=== PATIENT | male | born 1965 | race Hispanic/Latino ===

== ENCOUNTER 2018-07-10 14:27 | Observation (INO) | payer OTHER ==
[~2018-07-10] VITALS: Ht 180.3 cm; Wt 87.5 kg
[2018-07-10] VITALS (14 sets, daily range): BP systolic 102–144; BP diastolic 46–81
[2018-07-10 14:37] LABS: BASOPHILS % (AUTO) 0.7 % (0.0-5.0); EOSINOPHILS % (AUTO) 0.2 % (0.0-8.0); HEMATOCRIT 41.3 % (42-54); LYMPHOCYTES % (AUTO) 19.4 % (21.0-51.0); MEAN CORPUSCULAR HEMOGLOBIN 30.1 pg (27.0-33.0); MEAN CORPUSCULAR HGB CONC 33.9 g/dL (32.0-36.0); MEAN CORPUSCULAR VOLUME 88.8 fL (79-99); MONOCYTES % (AUTO) 6.2 % (3.0-13.0); NEUTROPHILS % (AUTO) 73.5 % (40.0-77.0); PLATELET COUNT (AUTO) 184 K/uL (130-400); RED BLOOD CELL COUNT(AUTO) 4.65 MIL/uL (4.50-6.20); RED CELL DISTRIBUTION WIDTH 13.5 % (11.0-15.5)
[2018-07-10] MEDS ORDERED: IOHEXOL 350 MG/ML 100ML INFUS..BTL IV ONE (14:39)
[2018-07-10] MEDS ORDERED: CEFAZOLIN SODIUM 1 GM VIAL ONE (14:44)
[2018-07-10] MEDS ORDERED: SODIUM CHLORIDE 0.9% 1000ML 1,000 ML IV ONE (14:44)
[2018-07-10 14:45] LABS: CREATININE 0.9 mg/dL (0.5-1.5); POTASSIUM 3.9 mmol/L (3.5-5.1)
[2018-07-10] MEDS ORDERED: TETANUS/DIPHTHERIA TOXOID [ADULT] 0.5 ML VIAL IM ONE (14:45)
[2018-07-10 14:46] LABS: PARTIAL THROMBOPLASTIN TIME 29.8 SEC (26.3-35.5); PROTHROMBIN TIME 10.5 SEC (9.6-11.6)
[2018-07-10 14:49] LABS: ALBUMIN 4.3 g/dL (3.5-5.0); BILIRUBIN,TOTAL 1.1 mg/dL (0.2-1.0); TOTAL PROTEIN, SERUM 7.6 g/dL (6.0-8.3)
[2018-07-10 16:44] LABS: APPEARANCE,URINE Clear (CLEAR); BILIRUBIN,URINE Negative (NEGATIVE); COLOR,URINE Yellow (YELLOW); GLUCOSE, URINE (UA) Negative (NEGATIVE); KETONES,URINE Negative (NEGATIVE); LEUKOCYTE ESTERASE ,URINE Negative (NEGATIVE); NITRATE,URINE Negative (NEGATIVE); OCCULT BLOOD,URINE Negative (NEGATIVE); PH,URINE 5.5 (5.0-8.0); PROTEIN,URINE Negative (NEGATIVE)
[2018-07-10 16:52] LABS: AMPHET/METH SCREEN,URINE NEGATIVE (NEGATIVE); BARBITURATE SCREEN, URINE NEGATIVE (NEGATIVE); BENZODIAZEPINES SCREEN,URINE NEGATIVE (NEGATIVE); CANNABINOID SCREEN,URINE NEGATIVE (NEGATIVE); COCAINE SCREEN,URINE NEGATIVE (NEGATIVE); OPIATE SCREEN,URINE NEGATIVE (NEGATIVE); PHENCYCLIDINE SCREEN,URINE NEGATIVE (NEGATIVE)
[2018-07-10] MEDS ORDERED: DEXAMETHASONE SOD PHOSPHATE 10MG/ML 1ML VIAL ONE (18:00)
[2018-07-10] MEDS ORDERED: MIDAZOLAM HCL 1 MG/ML 2ML VIAL ONE ×2 (18:00→19:09)
[2018-07-10] MEDS ORDERED: LIDOCAINE PF 2% 5ML ABBOJECT ONE (18:00)
[2018-07-10] MEDS ORDERED: SUCCINYLCHOLINE 200MG/10ML SYR ONE (18:00)
[2018-07-10] MEDS ORDERED: NEOSTIGMINE 5MG/5ML SYR IV ONE (18:01)
[2018-07-10] MEDS ORDERED: ROCURONIUM 10MG/1ML SYR 10 MG/ML ML ONE (18:01)
[2018-07-10] MEDS ORDERED: FENTANYL CITRATE PF 50 MCG/1 ML 2ML VIAL ONE (18:01)
[2018-07-10] MEDS ORDERED: ONDANSETRON HCL 4 MG/2 ML VIAL ONE (18:01)
[2018-07-10] MEDS ORDERED: GLYCOPYRROLATE 1 MG/5 ML SYRINGE ONE (18:01)
[2018-07-10] MEDS ORDERED: PROPOFOL 10 MG/ML 20ML VIAL IV ONE (18:01)
[2018-07-10] MEDS ORDERED: MEPERIDINE-PF 25 MG/ML SYG ONE ×2 (19:04→19:24)
[2018-07-10] MEDS ORDERED: KETOROLAC TROMETHAMINE 30MG/ML ONE (19:34)
--- NOTE | 2018-07-10 23:58 | NUR ---
NN PATIENT GIVEN DISCHARGE INSTRUCTIONS, NEW RX AND INFORMED TO FOLLOW UP IN AM FOR FOLLOW UP APPTS. ABLE TO VERBALIZE BACK ALL DISCHARGE INSTRUCTIONS GIVEN. PATIENT WITH 11 YRIS TO LT THIGH LACERATION, NO DRAINAGE NOTED, DRSG CLEAN AND DRY. WITH DARIUS BANDAGE IN PLACE. PATIENT INSTRUCTED NOT TO GET WET OR SOILED AND ABLE TO VERBALIZE BACK INSTRUCTIONS GIVEN. PIV CATHETER REMOVED INTACT. NO REDNESS NOTED TO SITE. ALL PERSONAL BELONGINGS RETRIEVED FROM SECURITY. PATIENT TAKEN VIA W/C WITH ALL PERSONAL BELONGINGS TO PRIVATE VEHICLE BY STAFF MEMBER.
== END 2018-07-10 23:58 | disposition home or self-care (01) ==
LOC: EDH 14:27 → EDHIP 17:10 → 4AH 20:10
PROVIDERS: ADMIT Surgery; ATTEND Surgery
DX: S71.119A Laceration without foreign body, unspecified thigh, initial encounter (principal); S81.812A Laceration without foreign body, left lower leg, initial encounter; W14.XXXA Fall from tree, initial encounter; Y93.39 Activity, other involving climbing, rappelling and jumping off; Y92.89 Other specified places as the place of occurrence of the external cause; Y99.8 Other external cause status; Z79.01 Long term (current) use of anticoagulants; Z23 Encounter for immunization; Z79.899 Other long term (current) drug therapy
CPT/HCPCS: 13121; 13122 ×3; 36415; 73701; 80053; 80305; 81003; 85025; 85610; 85730; 86850; 86900; 86901; 90471; 90714; 93005; 99284; A4452; A6446; G0378 ×7; J0330; J0690; J1100; J1885; J2001; J2175 ×2; J2250 ×2; J2405; J2704; J2710; J3010; J3490; J7030; Q9967

== ENCOUNTER 2018-09-13 10:03 | Emergency (ER) | payer OTHER ==
[2018-09-13] MEDS ORDERED: LIDOCAINE 5% TOPICAL PATCH TP ONE (10:55)
[2018-09-13] MEDS ORDERED: ORPHENADRINE CITRATE 30 MG/ML ML ONE (10:55)
== END 2018-09-13 11:38 | disposition home or self-care (01) ==
LOC: EDH 10:03
DX: M54.41 Lumbago with sciatica, right side (principal); F32.9 Major depressive disorder, single episode, unspecified
CPT/HCPCS: 96372; 99283; J2360

== ENCOUNTER 2018-09-17 10:51 | Emergency (ER) | payer OTHER ==
[2018-09-17] MEDS ORDERED: LIDOCAINE 5% TOPICAL PATCH TP ONE (11:14)
[2018-09-17] MEDS ORDERED: KETOROLAC TROMETHAMINE 60 MG/2 ML VIAL ONE (11:14)
== END 2018-09-17 11:33 | disposition home or self-care (01) ==
LOC: EDH 10:51
DX: M54.16 Radiculopathy, lumbar region (principal); M54.5 Low back pain; F31.9 Bipolar disorder, unspecified
CPT/HCPCS: 96372; 99283; J1885

== ENCOUNTER → 2022-08-13 | Outpatient (CLI) | payer OTHER | END | disposition home or self-care (01) | LOC: RAH 15:10 | PROVIDERS: ATTEND Family Medicine | DX: G45.3 Amaurosis fugax (principal) | CPT/HCPCS: 93880 ==

== ENCOUNTER → 2023-04-26 | Outpatient (CLI) | payer OTHER ==
[~2023-04-26] MED LIST: DICY20TA2 PO; L.AC1CAP6 PO; MAXIOS OD; ONDA4TAB10 PO
== END | disposition home or self-care (01) ==
LOC: RAH 13:10
PROVIDERS: ATTEND Internal Medicine
DX: H53.122 Transient visual loss, left eye (principal)
CPT/HCPCS: 70450

== ENCOUNTER 2024-11-23 10:15 | Emergency (ER) | payer OTHER ==
[~2024-11-23] VITALS: Ht 177.8 cm; Wt 88.5 kg
[~2024-11-23 10:15] MED LIST changes: +MELO-106 PO; +METH4TAB15 PO; +ONDA-243 PO; -ONDA4TAB10 PO
[2024-11-23 11:35] LABS: BASOPHILS # (AUTO) 0.02 K/uL (0.00-0.20); BASOPHILS % (AUTO) 0.4 % (0.0-5.0); EOSINOPHILS # (AUTO) 0.02 K/uL (0.00-0.70); EOSINOPHILS % (AUTO) 0.4 % (0.0-8.0); HEMATOCRIT 42.6 % (42-54); IMMATURE GRANULOCYTE ABSOLUTE 0.02 K/uL (0-1); LYMPHOCYTES % (AUTO) 17.4 % (21.0-51.0); MEAN CORPUSCULAR HEMOGLOBIN 29.5 pg (27.0-33.0); MEAN CORPUSCULAR HGB CONC 34.3 g/dL (32.0-36.0); MEAN CORPUSCULAR VOLUME 86.1 fL (79-99); MONOCYTES # (AUTO) 0.3 K/uL (0.1-1.0); MONOCYTES % (AUTO) 5.3 % (3.0-13.0); NEUTROPHILS # (AUTO) 4.3 K/uL (1.8-7.7); NEUTROPHILS % (AUTO) 76.1 % (40.0-77.0); PLATELET COUNT (AUTO) 167 K/uL (130-400); RED BLOOD CELL COUNT(AUTO) 4.95 MIL/uL (4.50-6.20); RED CELL DISTRIBUTION WIDTH 12.8 % (11.0-15.5); WHITE BLOOD COUNT (AUTO) 5.6 K/uL (4.8-10.8)
[2024-11-23 11:37] LABS: CREATININE 0.6 mg/dL (0.5-1.3); POTASSIUM 3.6 mmol/L (3.5-5.1)
[2024-11-23] MEDS: ondanSETRON 4MG INJ IVP ONE (12:28)
[2024-11-23] MEDS: morPHINE 2 MG SYG IVP ONE (12:36)
[2024-11-23 13:15] VITALS: TEMP 97.2
[2024-11-23] MEDS: ketOROlac 15MG/ML VIAL (15MG/ML) IV ONE (14:19)
--- NOTE | 2024-11-23 14:19 | HMCIMG ---
EXAM: CT Head Without IV contrast. CLINICAL HISTORY: severe frontal headache with vomiting TECHNIQUE: Axial computed tomography images of the head/brain without intravenous contrast. COMPARISON: None provided. FINDINGS: BRAIN: No evidence of acute hemorrhage. No mass lesion. No CT evidence for acute territorial infarct. No midline shift or extra-axial collections. VENTRICLES: No hydrocephalus. ORBITS: The orbits are unremarkable. SINUSES AND MASTOIDS: The paranasal sinuses and mastoid air cells are clear. BONES: No fracture. SOFT TISSUES: Unremarkable. IMPRESSION: No acute intracranial abnormality. /[place]
[2024-11-23] MEDS ORDERED: KETO10TA2 PO (14:44)
--- NOTE | 2024-11-23 14:44 | ERN ---
General Chief Complaint: Headache Stated Complaint: HEADACHE Time Seen by MD: 10:29 Time Seen by Midlevel: 10:29 Source: patient History of Present Illness Initial Comments The patient is a 59-year-old male presenting to the emergency department with a frontal headache with associated nausea and dizziness that started approximately 2100 yesterday. Denies any other symptoms. Reports similar episodes in the past. Denies history of migraines Allergies: Coded Allergies: No Known Allergies (Unverified Allergy, Unknown, 08/24/22) No Known Drug Allergies (Verified Allergy, Unknown, 02/20/18) Home Meds Active Scripts Methylprednisolone (Methylprednisolone) 4 Mg Tab.ds.pk, 4 MG PO AD, #1 PACK 0 Refills Prov:AILIN ALFORD Sr., MD 08/03/23 Meloxicam (Meloxicam) 7.5 Mg Tablet, 7.5 MG PO DAILY, #30 TAB 2 Refills Prov:AILIN ALFORD Sr., MD 08/03/23 Dicyclomine HCl (Bentyl) 20 Mg Tab, 20 MG PO TID, #15 TAB Prov:FITTINGSHREYA 08/30/21 L.acidoph & Paracasei,B.lactis (Probiotic) 1 Each Capsule, 1 EACH PO DAILY, #30 CAP Prov:SHREYA TORRES 08/30/21 Ondansetron (Ondansetron Odt) 4 Mg Tab.rapdis, 4 MG PO TID, #15 TAB Prov:FITTINGSHREYA 08/30/21 Ulises/Polymyx B Sulf/Dexameth (Maxitrol Ophth Susp) 20 Drop/Ml Opsus, 1 DROP OD BID for 7 Days, #30 DROP Prov:BESS JACOBSEN MD 08/04/21 Past Medical History Past Medical History: GERD Past Surgical History: Other Surgical History Other: BACK SX, SKIN GRAFTS ROS Dictation CONSTITUTIONAL: Negative except for HPI HEAD/FACE: Negative except for HPI EENT: Negative except for HPI RESPIRATORY: Negative except for HPI GASTROINTESTINAL/ABDOMINAL: Negative except for HPI GENITOURINARY: Negative except for HPI MUSCULOSKELETAL: Negative except for HPI INTEGUMENTARY: Negative except for HPI NEUROLOGICAL/PSYCH: Negative except for HPI HEMATOLOGIC/LYMPHATIC: Negative except for HPI All Systems Negative, Except as noted above. 13 point review of systems assessed and all negative except for above. Physical Exam Physical Exam Dictation Vital Signs reviewed General Appearance: Alert, oriented x 3, no acute distress, well developed, nourished. Head and Face: non-traumatic. Eyes: PERRL, pink conjunctivas, eyelid no trauma, anterior chamber with arcus senilis. Ears: Pinnas intact and no signs of trauma or erythema ear canals clear and no discharge TM no erythema Nose: No discharge, no bleeding. Oropharynx: Mouth normal, tongue pink, pharynx clear,no erythema, tonsils no exudates, no abscesses noted, mucous membrane moist Neck: Supple, non-tender, no thyromegaly, no masses, no JVD, no bruits Breast:Deferred Chest:No tenderness, no crepitus, no paradoxical movement, no retractions Lungs:Clear, well-ventilated, symmetric, no rales, no wheezing, no rhonchi, no stridor, good breath sounds bilaterally Heart: Regular rate, regular rhythm, no murmur, no gallops Vascular: no peripheral edema, Abdomen: Soft, positive bowel sounds, nondistended, no guarding, nontender, no rebound, no masses no hepatomegaly, no splenomegaly, no Rasmussen's sign, no hernias. Rectal: Deferred Genital: Deferred Neurological: Normal speech, motor function intact, sensory function intact Musculoskeletal: Neck nontender, full range of motion, back nontender, full range of motion, Extremities: nontender, full range of motion Skin: Color pink, dry, no turgor, no rash, no lacerations, no abrasions, no contusions. Lymphatic: Deferred Results Laboratory and Microbiology Lab and Micro Result Laboratory Tests Test 11/23/24 11:11 White Blood Count 5.6 K/uL (4.8-10.8) Red Blood Count 4.95 MIL/uL (4.50-6.20) Hemoglobin 14.6 g/dL (14.0-18.0) Hematocrit 42.6 % (42-54) Mean Corpuscular Volume 86.1 fL (79-99) Mean Corpuscular Hemoglobin 29.5 pg (27.0-33.0) Mean Corpuscular Hemoglobin Concent 34.3 g/dL (32.0-36.0) Red Cell Distribution Width 12.8 % (11.0-15.5) Platelet Count 167 K/uL (130-400) Mean Platelet Volume 11.1 fL (7.5-10.5) H Immature Granulocyte % (Auto) 0.4 % (0-1) Neutrophils (%) (Auto) 76.1 % (40.0-77.0) Lymphocytes (%) (Auto) 17.4 % (21.0-51.0) L Monocytes (%) (Auto) 5.3 % (3.0-13.0) Eosinophils (%) (Auto) 0.4 % (0.0-8.0) Basophils (%) (Auto) 0.4 % (0.0-5.0) Neutrophils # (Auto) 4.3 K/uL (1.8-7.7) Lymphocytes # (Auto) 1.0 K/uL (1.0-4.8) Monocytes # (Auto) 0.3 K/uL (0.1-1.0) Eosinophils # (Auto) 0.02 K/uL (0.00-0.70) Basophils # (Auto) 0.02 K/uL (0.00-0.20) Absolute Immature Granulocyte (auto 0.02 K/uL (0-1) Nucleated Red Blood Cells 0.0 % (0.0-0.19) Sodium Level 141 mmol/L (136-145) Potassium Level 3.6 mmol/L (3.5-5.1) Chloride Level 103 mmol/L (101-111) Carbon Dioxide Level 29 mmol/L (21-32) Blood Urea Nitrogen 27 mg/dL (7-18) H Creatinine 0.6 mg/dL (0.5-1.3) Glomerular Filtration Rate Calc 113 mL/min (>90) Random Glucose 125 mg/dL (70-105) H Total Calcium 9.5 mg/dL (8.5-10.1) Labs Reviewed?: Yes MDM MDM: Differential diagnosis: Migraine headache, tension headache, cluster headache, intracranial bleed There are no social concerns with this patient. Prescription drug management Prescriptions will include: Toradol Medical management and examination interpretation discussions were had by me with other qualified healthcare professionals as indicated for the patient's care. ED Course Orders Procedure Category Date Status Time Cbc With Differential LAB 11/23/24 Complete 10:49 Basic Metabolic Panel LAB 11/23/24 Complete 10:49 Ct Head/Brain W/O CT 11/23/24 Resulted Contrast 10:49 Morphine 2mg Syg PHA 11/23/24 Complete (Morphine 2mg Syg) 12:00 Ondansetron 4mg Inj PHA 11/23/24 Complete (Zofran 4mg Inj) 12:00 Ketorolac PHA 11/23/24 Complete Tromethamine 15mg/Ml 14:30 Current Medications Medications (Trade) Dose Ordered Sig/Nj Route PRN Reason Start Time Stop Time Status Last Admin Dose Admin Ketorolac Tromethamine (toRADol) 15 mg ONCE ONCE IV 11/23/24 14:30 11/23/24 14:31 DC 11/23/24 14:19 Morphine Sulfate (morPHINE 2MG SYG) 2 mg ONCE ONCE IVP 11/23/24 12:00 11/23/24 12:01 DC 11/23/24 12:36 Ondansetron HCl (zoFRAN 4MG INJ) 4 mg ONCE ONCE IVP 11/23/24 12:00 11/23/24 12:01 DC 11/23/24 12:28 Vital Signs Date Time Temp Pulse Resp B/P (MAP) Pulse Ox O2 Delivery O2 Flow Rate FiO2 11/23/24 13:15 97.2 57 16 152/77 98 Room Air* 0 21 11/23/24 10:26 97.9 50 18 131/87 97 Room Air* 0 21 11/23/24 10:16 98.2 50 18 135/86 97 Room Air 0 DX & DISP Disposition: Discharge Departure Impression: Primary Impression: Tension headache Condition: Stable Scripts Ketorolac Tromethamine (Ketorolac Tromethamine) 10 Mg Tablet 1 TAB PO TID for pain for 5 Days, #15 TAB 0 Refills Prov: JB MENDEZ 11/23/24 Additional Instructions: Your blood work today is unremarkable. There are no signs of dehydration. Follow up with your primary care doctor in 2-3 days for repeat evaluation Referrals: VALERIE LINTON MD (PCP) Time of Disposition: 14:43 I have reviewed the case, and I agree with, Diagnosis and Plan I performed the substantive portion of the visit. I have reviewed and personally made and approve the management plan that is documented in the note by myself or the MICHAEL. I acknowledge for responsibility for the patient's management plan. JB MENDEZ Nov 23, 2024 14:44
[2024-11-23] MEDS: acetaMINOPHEN 500 MG TABLET PO SCH (15:56)
[2024-11-23 16:02] VITALS: BP 134/78; PULSE 54; RESP 16; O2SAT 97
== END 2024-11-23 16:03 | disposition home or self-care (01) ==
LOC: EDH 10:15
DX: G44.209 Tension-type headache, unspecified, not intractable (principal); K21.9 Gastro-esophageal reflux disease without esophagitis; Z79.1 Long term (current) use of non-steroidal anti-inflammatories (NSAID)
CPT/HCPCS: 99285; 96374; 70450; 96375; 80048; 85025; 36415; J1885; J2270; J2405

== ENCOUNTER 2025-01-05 00:34 | Emergency (ER) | payer OTHER ==
[~2025-01-05] VITALS: Ht 177.8 cm; Wt 89.8 kg
[~2025-01-05 00:34] MED LIST changes: +KETO10TA2 PO
--- NOTE | 2025-01-05 01:04 | ERN ---
General Chief Complaint: Headache Stated Complaint: C/O HEADACHE ONSET 1899 LAST NIGHT Time Seen by MD: 00:50 Source: patient History of Present Illness Initial Comments Patient comes in with a headache that is centered on his bilateral temporal regions and forehead. Says he has been working outside all day and the headache started after that in addition to the right calf cramping. He said he had has this once before and it was treated with a injections and pain meds. Allergies: Coded Allergies: No Known Allergies (Unverified Allergy, Unknown, 08/24/22) No Known Drug Allergies (Verified Allergy, Unknown, 02/20/18) Home Meds Active Scripts Ketorolac Tromethamine (Ketorolac Tromethamine) 10 Mg Tablet, 1 TAB PO TID for pain for 5 Days, #15 TAB 0 Refills Prov:JB MENDEZ 11/23/24 Methylprednisolone (Methylprednisolone) 4 Mg Tab.ds.pk, 4 MG PO AD, #1 PACK 0 Refills Prov:AILIN ALFORD Sr., MD 08/03/23 Meloxicam (Meloxicam) 7.5 Mg Tablet, 7.5 MG PO DAILY, #30 TAB 2 Refills Prov:AILIN ALFORD Sr., MD 08/03/23 Dicyclomine HCl (Bentyl) 20 Mg Tab, 20 MG PO TID, #15 TAB Prov:SHREYA TORRES 08/30/21 L.acidoph & Paracasei,B.lactis (Probiotic) 1 Each Capsule, 1 EACH PO DAILY, #30 CAP Prov:SHREYA TORRES 08/30/21 Ondansetron (Ondansetron Odt) 4 Mg Tab.rapdis, 4 MG PO TID, #15 TAB Prov:SHREYA TORRES 08/30/21 Ulises/Polymyx B Sulf/Dexameth (Maxitrol Ophth Susp) 20 Drop/Ml Opsus, 1 DROP OD BID for 7 Days, #30 DROP Prov:BESS JACOBSEN MD 08/04/21 Past Medical History Past Medical History: No Pertinent History Past Surgical History: Other Surgical History Other: SKIN GRAFT TO LEGS Constitutional: (-) chills, (-) diaphoresis, (-) fever, (-) malaise, (-) weakness, (-) other documentation EENTM: (-) eye pain, (-) blurred vision, (-) tearing, (-) double vision, (-) ear pain, (-) ear discharge, (-) nose pain, (-) nose congestion, (-) throat pain, (-) Throat swelling, (-) mouth pain, (-) tooth pain, (-) mouth swelling, (-) other documentation Respiratory: (-) cough, (-) orthopnea, (-) short of breath, (-) stridor, (-) wheezing, (-) other documentation Cardiovascular: (-) chest pain, (-) edema, (-) palpitations, (-) syncope, (-) dyspnea on exertion, (-) other documentation Gastrointestinal/Abdominal: (-) nausea, (-) vomiting, (-) diarrhea, (-) abdominal pain, (-) abdominal distention, (-) constipation, (-) rectal bleeding, (-) dark stool/melena, (-) other documentation Musculoskeletal: (-) Neck pain, (-) back pain, (-) Flank Pain, (-) joint pain, (-) joint swelling, (-) muscle pain, (-) muscle stiffness, (-) gout, (-) other documentation Neuro: (+) headache Physical Exam General Appearance: (+) mild distress Orientation: (+) alert, (+) oriented x 3 Head/Face Trauma: No Eye: bilateral eye normal inspection, bilateral eye PERRL, bilateral eye EOMI Ear, Nose, Throat: (+) hearing grossly normal, (+) normal ENT inspection Neck: (+) normal inspection, (+) supple Respiratory: (+) chest non-tender, (+) lungs clear, (+) well ventilated Heart: (+) regular, (+) no gallop Vascular: (+) no edema Gastrointestinal: (+) soft, (+) bowel sound present Results Laboratory and Microbiology Lab and Micro Result Laboratory Tests Test 01/05/25 02:45 01/05/25 03:14 White Blood Count 6.0 K/uL (4.8-10.8) Red Blood Count 4.27 MIL/uL (4.50-6.20) L Hemoglobin 13.0 g/dL (14.0-18.0) L Hematocrit 36.8 % (42-54) L Mean Corpuscular Volume 86.2 fL (79-99) Mean Corpuscular Hemoglobin 30.4 pg (27.0-33.0) Mean Corpuscular Hemoglobin Concent 35.3 g/dL (32.0-36.0) Red Cell Distribution Width 12.7 % (11.0-15.5) Platelet Count 156 K/uL (130-400) Mean Platelet Volume 10.8 fL (7.5-10.5) H Immature Granulocyte % (Auto) 0.2 % (0-1) Neutrophils (%) (Auto) 57.3 % (40.0-77.0) Lymphocytes (%) (Auto) 29.8 % (21.0-51.0) Monocytes (%) (Auto) 9.8 % (3.0-13.0) Eosinophils (%) (Auto) 2.2 % (0.0-8.0) Basophils (%) (Auto) 0.7 % (0.0-5.0) Neutrophils # (Auto) 3.5 K/uL (1.8-7.7) Lymphocytes # (Auto) 1.8 K/uL (1.0-4.8) Monocytes # (Auto) 0.6 K/uL (0.1-1.0) Eosinophils # (Auto) 0.13 K/uL (0.00-0.70) Basophils # (Auto) 0.04 K/uL (0.00-0.20) Absolute Immature Granulocyte (auto 0.01 K/uL (0-1) Nucleated Red Blood Cells 0.0 % (0.0-0.19) Sodium Level 135 mmol/L (136-145) L Potassium Level 3.6 mmol/L (3.5-5.1) Chloride Level 100 mmol/L (101-111) L Carbon Dioxide Level 29 mmol/L (21-32) Blood Urea Nitrogen 23 mg/dL (7-18) H Creatinine 0.7 mg/dL (0.5-1.3) Glomerular Filtration Rate Calc 107 mL/min (>90) Random Glucose 100 mg/dL (70-105) Total Calcium 8.8 mg/dL (8.5-10.1) Urine Color COLORLESS (YELLOW) Urine Appearance CLEAR (CLEAR) Urine pH 6.5 (5.0-8.0) Urine Specific [place] 1.011 (1.001-1.031) Urine Protein NEGATIVE mg/dL (NEGATIVE) Urine Glucose (UA) NEGATIVE mg/dL (NEGATIVE) Urine Ketones NEGATIVE mg/dL (NEGATIVE) Urine Occult Blood NEGATIVE (NEGATIVE) Urine Nitrate NEGATIVE (NEGATIVE) Urine Bilirubin NEGATIVE mg/dL (NEGATIVE) Urine Urobilinogen 0.2 mg/dL (0.2-1.0) Urine Leukocyte Esterase NEGATIVE Lyn/uL MDM Patient's symptoms strongly suggest dehydration. I will give him some fluids along with muscle relaxants and pain control. If these interventions relieve his symptoms than a forego labs. Patient's symptoms have improved with the 2 L of fluid and Tylenol plus the muscle relaxant and Toradol. His only pain is on the left side of his forehead which she relates to a stuffed nose and sinus pain that he has had in the past. I will give him some Afrin spray and then he can be discharged. ED Course Orders Procedure Category Date Status Time Lactated Ringers PHA 01/05/25 Complete 1000ml (Lactated 01:01 Orphenadrine Citrate PHA 01/05/25 Complete (Norflex) 01:30 Ketorolac 60mg/2ml PHA 01/05/25 Complete (Toradol 60mg/2ml) 01:30 Lactated Ringers PHA 01/05/25 Complete 1000ml (Lactated 02:30 Lactated Ringers PHA 01/05/25 Complete 1000ml (Lactated 02:28 Basic Metabolic Panel LAB 01/05/25 Complete 02:28 Cbc With Differential LAB 01/05/25 Complete 02:28 Urinalysis Profile LAB 01/05/25 Complete 02:28 Acetaminophen 500mg PHA 01/05/25 Complete Tab (Tylenol 500mg T 03:30 Current Medications Medications (Trade) Dose Ordered Sig/Nj Route PRN Reason Start Time Stop Time Status Last Admin Dose Admin Acetaminophen (TYLenol 500MG TAB) 1,000 mg ONCE ONCE PO 01/05/25 03:30 01/05/25 03:31 DC 01/05/25 04:01 Ketorolac Tromethamine (toRADol 60MG/ 2ML) 60 mg ONCE ONCE IM 01/05/25 01:30 01/05/25 01:31 DC 01/05/25 01:52 Lactated Ringer's 1,000 ml @ 0 mls/hr Q0M IV 01/05/25 02:30 01/05/25 02:33 DC 01/05/25 02:26 Lactated Ringer's (Lactated Ringers 1000ml) 1,000 ml BOLUS STAT IV 01/05/25 01:01 01/05/25 01:03 DC 01/05/25 01:53 Lactated Ringer's (Lactated Ringers 1000ml) 1,000 ml BOLUS STAT IV 01/05/25 02:28 01/05/25 02:32 DC Orphenadrine Citrate (Norflex) 60 mg ONCE ONCE IM 01/05/25 01:30 01/05/25 01:31 DC 01/05/25 01:52 Vital Signs Date Time Temp Pulse Resp B/P (MAP) Pulse Ox O2 Delivery O2 Flow Rate FiO2 01/05/25 04:05 97.5 50 18 144/76 98 Room Air* 0 21 01/05/25 02:59 42 16 153/88 96 Room Air* 0 21 01/05/25 02:13 97.9 38 18 148/94 98 Room Air* 0 21 01/05/25 00:35 97.5 51 20 130/84 97 Room Air DX & DISP Disposition: Discharge Departure Impression: Primary Impression: Tension headache Additional Impressions: Dehydration, Sinus congestion, Nasal sinus congestion Condition: Stable Additional Instructions: I think your symptoms or classic for heat stroke and a dehydration headache versus tension headache. In either case it is resolved with fluids and muscle relaxants. Her only remaining symptom is your left sinus pain and your clogged left nostril. I have written for some Afrin spray to help relieve those symptoms. Use the Afrin spray for only a few days. After that you can use Sudafed to help relieve the sinus pain. Please drink plenty of fluids. Drink enough so that your urine runs clear at least once a day. We did do laboratory studies and your chemistry panel and your CBC plate blood count in your urine are all normal. Referrals: VALERIE LINTON MD (PCP) ASHELY BA MD Jan 05, 2025 01:04
[2025-01-05] MEDS: ORPHENADRINE 60MG/2ML IM ONE (01:52)
[2025-01-05] MEDS: LACTATED RINGERS 1000ML IV STA ×2 (01:53→03:58)
[2025-01-05] MEDS: LACTATED RINGERS 1000ML 1,000 ML IV SCH (02:26)
[2025-01-05 02:52] LABS: IMMATURE GRANULOCYTE ABSOLUTE 0.01 K/uL (0-1); NUCLEATED RED BLOOD CELLS 0.0 % (0.0-0.19); PLATELET COUNT (AUTO) 156 K/uL (130-400); RED BLOOD CELL COUNT(AUTO) 4.27 MIL/uL (4.50-6.20); RED CELL DISTRIBUTION WIDTH 12.7 % (11.0-15.5); WHITE BLOOD COUNT (AUTO) 6.0 K/uL (4.8-10.8)
[2025-01-05 02:59] LABS: CREATININE 0.7 mg/dL (0.5-1.3); GLOMERULAR FILTR. RATE CALC 107.0 mL/min (>90); GLUCOSE,RANDOM 100.0 mg/dL (70-105); SODIUM SERUM 135.0 mmol/L (136-145); UREA NITROGEN, BLOOD 23.0 mg/dL (7-18)
[2025-01-05 03:31] LABS: APPEARANCE,URINE CLEAR (CLEAR); GLUCOSE, URINE (UA) NEGATIVE (NEGATIVE); LEUKOCYTE ESTERASE ,URINE NEGATIVE Leu/uL (NEGATIVE); NITRATE,URINE NEGATIVE (NEGATIVE); OCCULT BLOOD,URINE NEGATIVE (NEGATIVE)
[2025-01-05 03:35] LABS: ADD UA MICROSCOPIC NO
[2025-01-05] MEDS: OXYmetazoline HCL SPRAY 100 SPRAYS/15 ML BOTTLE EN SCH (04:44)
[2025-01-05 04:51] VITALS: BP 144/76; PULSE 43; RESP 18; TEMP 98.2; O2SAT 99
[2025-01-05] MEDS ORDERED: OXYmetazoline HCL SPRAY 100 SPRAYS/15 ML BOTTLE EN SCH (09:00)
== END 2025-01-05 04:54 | disposition home or self-care (01) ==
LOC: EDH 00:34
DX: G44.209 Tension-type headache, unspecified, not intractable (principal); E86.0 Dehydration; R09.81 Nasal congestion; Z79.1 Long term (current) use of non-steroidal anti-inflammatories (NSAID); Z79.899 Other long term (current) drug therapy
CPT/HCPCS: 99284; 96360; 96361; 80048; 85025; 81003; 36415; 96372 ×2; J1885; J7120 ×2; J2360